=== PATIENT | female | born 1995 | race African-American/Black ===

== ENCOUNTER 2016-09-02 02:26 | Emergency (ER) | payer OTHER ==
[~2016-09-02 02:26] MED LIST: ACET50TA PO; CALC500T49 PO; CENTTAB36 PO; IBUP80TA PO; PRIL20CA9 PO; PROZ40CA PO
[2016-09-02 03:55] LABS: BASO % 0.6 % (0.0-1.0); EOS # 0.2 K/mm3 (0.0-0.50); EOS % 3.2 % (0.0-3.0); LARGE UNSTAINED CELL # 0.2 K/mm3 (0.0-0.4); LARGE UNSTAINED CELL % 3.2 % (0.0-4.0); LYMPH # 2.3 K/mm3 (1.5-6.5); LYMPH % 42.5 % (24.0-44.0); MEAN CORPUSCULAR HEMOGLOBIN 31.3 pg (27.0-33.0); MEAN CORPUSCULAR HGB CONC 33.1 g/dl (32.0-36.5); MEAN CORPUSCULAR VOLUME 94.3 fl (80.0-96.0); MONO # 0.4 K/mm3 (0.0-0.8); MONO % 7.1 % (0.0-5.0); NEUTROPHILS # 2.4 K/mm3 (1.8-7.7); NEUTROPHILS % 43.4 % (36.0-66.0); PLATELET COUNT, AUTOMATED 213 k/mm3 (150-450); RED CELL DISTRIBUTION WIDTH 12.1 % (11.5-14.5); WHITE BLOOD COUNT 5.5 K/mm3 (4.0-10.0)
[2016-09-02 04:05] LABS: CONTROL LINE HCG INT CTR LINE PRESENT
[2016-09-02] MEDS ORDERED: metroNIDAZOLE (FLAGYL) 500 MG TAB As Ordered ONE (05:49)
--- NOTE | 2016-09-02 05:59 | EDDOCDS ---
Nurse's Notes [facility] Name: Dyana León Age: 21 yrs Sex: Female : 1995 Arrival Date: 09/02/2016 Time: 02:26 Bed 10 Private MD: Diagnosis: Other abnormal uterine and vaginal bleeding;Trichomoniasis Presentation: 09/02 02:31 Presenting complaint: Patient states: "My vagina is swollen on the inside. It's ld5 painful. My blood smells funny. It smells like ." Pt reports pain started 3 days ago. Adult Sepsis Screening: The patient does not have new or worsening altered mentation. Patient's respiratory rate is less than 22. Systolic blood pressure is greater than 100. Patient has a qSOFA score of 0- Negative Sepsis Screen. 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 Transition of care: patient was not received from another setting of care. 02:31 Acuity: WONG Level 4 ld5 02:31 Method Of Arrival: Walkin/Carried/Asstd ld5 05:58 Suicide/Homicide risk assessment- the patient denies having any suicidal and/or mlc homicidal ideations and does not present with any other emotional, behavioral or mental health complaints. Triage Assessment: 02:33 General: Appears in no apparent distress. Pain: Location: groin Pain currently is 8 out ld5 of 10 on a pain scale. HIV screening NA for this visit Offered previously. Neurological: Level of Consciousness is awake, alert. Respiratory: Airway is patent Respiratory effort is even, unlabored. : Reports pain with urination yesterday. 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 Trazodone Oral Unknown nightly 2. another unknown sleep med 3. Celebrex Oral Unknown once daily - PMHx: insomnia; - PSHx: none; - Social history: Smoking status: Patient states was never smoker of tobacco. No barriers to communication noted, The patient speaks fluent Moh[place], Speaks appropriately for age. - Family history: Not pertinent. - : The pt / caregiver states he / she is not on anticoagulants. Home medication list is obtained from the patient. - Exposure Risk Screening:: None identified. Screenin:30 Screening information is obtained from the patient. Fall risk: No risks identified. mlc Assistance ADL's: requires no assistance with activities of daily living. Abuse/DV Screen: The patient / caregiver reports he/she is: not in a situation that causes fear, pain or injury. Nutritional screening: No deficits noted. Advance Directives: Currently, there is no health care proxy. home support is adequate. Assessment: 03:24 General: Appears in no apparent distress, comfortable, Behavior is cooperative. Pain: mlc Location: suprapubic area and vaginal opening Pain currently is 7 out of 10 on a pain scale. Neurological: Level of Consciousness is awake, alert, obeys commands, Oriented to person, place, time. Respiratory: Airway is patent Respiratory effort is even, unlabored, Respiratory pattern is regular. GI: Abdomen is non- distended Bowel sounds present X 4 quads. Abd is soft X 4 quads. : Reports vaginal bleeding that is light flow spotty. Derm: Skin is pink, warm & dry. 03:24 Reassessment: pt reports having 2 positive tests at home. mlc 04:20 General: Appears in no apparent distress, pt reports no pain relief and asking to speak mlc with Dr. Jesus again. . 05:20 Reassessment: Patient appears in no apparent distress at this time. Patient states mlc symptoms have not improved. pt's boyfriend told staff that she wiped her vagina with a rag that came in contact with mace. Dr. Jesus made aware. . 05:56 General: Appears in no apparent distress, comfortable, Behavior is cooperative. mlc Neurological: Level of Consciousness is awake, alert, Oriented to person, place, time. Respiratory: Airway is patent Respiratory effort is even, unlabored, Respiratory pattern is regular. Vital Signs: 02:29 BP 137 / 79; Pulse 68; Resp 16; Temp 98.2(O); Pulse Ox 98% on R/A; Weight 77.11 kg (R); ld5 Height 5 ft. 6 in. (167.64 cm) (R); Pain 8/10; 05:56 BP 121 / 83; Pulse 72; Resp 18; Temp 98.7; Pulse Ox 99% ; mlc 02:29 Body Mass Index 27.44 (77.11 kg, 167.64 cm) ld5 Vitals: 02:29 Log In Time: September 02, 2016 at 02:26. ld5 ED Course: 02:27 Patient visited by Trace Braun Reg. pm4 02:27 Patient moved to Waiting pm4 02:32 Triage Initiated ld5 02:34 Patient visited by Alta Donvoan RN. ld5 03:05 Gabi Nuñez RN is Primary Nurse. ko2 03:05 Patient moved to 10 ko2 03:06 Chris Jesus DO is Attending Physician. cs11 03:06 Patient visited by Chris Jesus DO. cs11 03:27 Patient visited by Gabi Nuñez RN. mlc 03:30 Patient visited by Gabi Nuñez RN. mlc 03:44 CBC with Diff Sent. sabino 03:44 HCG,Serum Qualitative Sent. sabino 03:44 Labs drawn. (by ED staff). Sent per order to lab. sabino 03:51 [facility] Agreement was scanned into [employer] and attached to record. [facility] 04:35 Frank Wilks is Referral Physician. cs11 05:17 Assist provider with pelvic exam: Set up pelvic tray. Specimens sent to lab. sabino 05:18 Patient visited by Sanam Ayala PCA. sabino 05:18 Wet Prep Sent. sabino 05:22 Patient visited by Gabi Nuñez RN. mlc 05:25 GC & Chlamydia Amplification Sent. mlc 05:25 Assist provider with pelvic exam: Set up pelvic tray. Specimens sent to lab. Performed mlc by Chris Jesus DO. 05:28 Patient visited by Gabi Nuñez RN. mlc 05:28 The patient / caregiver is instructed regarding the plan of care and ED course. mlc 05:56 No IV's were initiated during this patient's visit. mlc Administered Medications: 05:56 Drug: metroNIDAZOLE 2 grams [metronidazole 500 mg tablet (4 tabs)] Route: PO; mlc 05:56 Follow up: Response: Pt left department before re-evaluation is appropriate mlc Point of Care Testing: Urine : 03:29 hCG Reading: Negative; Control Reading: Positive; mlc Ranges: Order Results: Lab Order: HCG,Serum Qualitative; SPEC'M 09/02/16 03:42 Test: HCG, SERUM QUALITATIVE; Value: NEGATIVE; Range: NEGATIVE; Status: F Lab Order: CBC with Diff; SPEC'M 09/02/16 03:42 Test: WHITE BLOOD COUNT; Value: 5.5; Range: 4.0-10.0; Units: K/mm3; Status: F Test: RED BLOOD COUNT; Value: 4.47; Range: 4.00-5.40; Units: M/mm3; Status: F Test: HEMOGLOBIN; Value: 14.0; Range: 12.0-16.0; Units: g/dl; Status: F Test: HEMATOCRIT; Value: 42.2; Range: 36.0-47.0; Units: %; Status: F Test: MEAN CORPUSCULAR VOLUME; Value: 94.3; Range: 80.0-96.0; Units: fl; Status: F Test: MEAN CORPUSCULAR HEMOGLOBIN; Value: 31.3; Range: 27.0-33.0; Units: pg; Status: F Test: MEAN CORPUSCULAR HGB CONC; Value: 33.1; Range: 32.0-36.5; Units: g/dl; Status: F Test: RED CELL DISTRIBUTION WIDTH; Value: 12.1; Range: 11.5-14.5; Units: %; Status: F Test: PLATELET COUNT, AUTOMATED; Value: 213; Range: 150-450; Units: k/mm3; Status: F Test: NEUTROPHILS %; Value: 43.4; Range: 36.0-66.0; Units: %; Status: F Test: LYMPH %; Value: 42.5; Range: 24.0-44.0; Units: %; Status: F Test: MONO %; Value: 7.1; Range: 0.0-5.0; Abnormal: Above high normal; Units: %; Status: F Test: EOS %; Value: 3.2; Range: 0.0-3.0; Abnormal: Above high normal; Units: %; Status: F Test: BASO %; Value: 0.6; Range: 0.0-1.0; Units: %; Status: F Test: LARGE UNSTAINED CELL %; Value: 3.2; Range: 0.0-4.0; Units: %; Status: F Test: NEUTROPHILS #; Value: 2.4; Range: 1.8-7.7; Units: K/mm3; Status: F Test: LYMPH #; Value: 2.3; Range: 1.5-6.5; Units: K/mm3; Status: F Test: MONO #; Value: 0.4; Range: 0.0-0.8; Units: K/mm3; Status: F Test: EOS #; Value: 0.2; Range: 0.0-0.50; Units: K/mm3; Status: F Test: BASO #; Value: 0.0; Range: 0.0-0.2; Units: K/mm3; Status: F Test: LARGE UNSTAINED CELL #; Value: 0.2; Range: 0.0-0.4; Units: K/mm3; Status: F Lab Order: Wet Prep; SPEC'M 09/02/16 05:20 Test: WET PREP; Value: WET PREP RESULT; Status: F Test: WET PREP; Value: FEW TRICHOMONAS PRESENT; Status: F Test: WET PREP; Value: MODERATE RBC; Status: F Test: WET PREP; Value: MANY WBC; Status: F Test: WET PREP; Value: FEW EPITHELIAL CELLS PRESENT; Status: F Outcome: 04:35 Discharge ordered by Provider. 11 05:56 Discharge Assessment: Patient awake, alert and oriented x 3. No cognitive and/or mlc functional deficits noted. Patient verbalized understanding of disposition instructions. patient administered narcotics - no. The following High Risk Discharge criteria are identified: None. Discharged to home ambulatory. Condition: good Condition: stable. Discharge instructions given to patient, Instructed on discharge instructions, follow up and referral plans. Demonstrated understanding of instructions, Pt was receptive of discharge instructions/ teaching. No special radiology studies were completed. Property sent home with patient. 05:58 [place] [facility] [place] Signatures: Alta Donovan,RN RN ld5 Sanam Ayala, BRAULIO HAND FRETTED INSTRUMENT MAKER Chris Robles, DO DO cs11 Gabi Nuñez RN RN mlc Ogden, Kari, RN RN rob2 Lizette Gudino Trace Olmos, Reg Reg pm4 MTDD
--- NOTE | 2016-09-02 05:59 | EDDOCDS ---
Physician Documentation [facility] Name: Dyana León Age: 21 yrs Sex: Female : 1995 Arrival Date: 09/02/2016 Time: 02:26 Bed 10 Private MD: Disposition: 09/02/16 04:35 Discharged to Home/Self Care. Impression: Other abnormal uterine and vaginal bleeding, Trichomoniasis. - Condition is Stable. - Medication Reconciliation, Local Pharmacy Hours form. - Follow up: Private Physician; When: Call to arrange an appointment; Reason: Recheck today's complaints. Follow up: Frank Wikls; When: Call to arrange an appointment; Reason: Recheck today's complaints. - Problem is new. - Symptoms are unchanged. Historical: - Allergies: no known allergies; - Home Meds: 1. Trazodone Oral Unknown nightly 2. another unknown sleep med 3. Celebrex Oral Unknown once daily - PMHx: insomnia; - PSHx: none; - Social history: Smoking status: Patient states was never smoker of tobacco. No barriers to communication noted, The patient speaks fluent [place], Speaks appropriately for age. - Family history: Not pertinent. - : The pt / caregiver states he / she is not on anticoagulants. Home medication list is obtained from the patient. - Exposure Risk Screening:: None identified. 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 6 in. (167.64 cm) (R); Pain 8/10; 05:56 BP 121 / 83; Pulse 72; Resp 18; Temp 98.7; Pulse Ox 99% ; mlc 02:29 Body Mass Index 27.44 (77.11 kg, 167.64 cm) ld5 MDM: 02:40 UCG by Nursing ordered. mo1 03:37 HCG,Serum Qualitative Ordered. EDMS 03:37 CBC with Diff Ordered. EDMS 03:50 Financial registration complete. [facility] 03:51 [facility] Payment Agreement was scanned into [employer] and attached to record. [facility] 04:32 CBC with Diff Reviewed. cs11 04:32 HCG,Serum Qualitative Reviewed. cs11 05:18 Wet Prep Ordered. EDMS 05:18 GC & Chlamydia Amplification Ordered. EDMS 05:45 Wet Prep Reviewed. cs11 05:47 metroNIDAZOLE 2 grams PO once ordered. cs11 Point of Care Testing: Urine : 03:29 hCG Reading: Negative; Control Reading: Positive; mlc Ranges: Administered Medications: 05:56 Drug: metroNIDAZOLE 2 grams [metronidazole 500 mg tablet (4 tabs)] Route: PO; mlc 05:56 Follow up: Response: Pt left department before re-evaluation is appropriate [facility] [place] Signatures: Dispatcher [employer] Alta Gregory RN RN ld5 Chris Jesus, DO cs11 Efrain Silva PA PA mo1 Gabi Nuñez RN RN Lizette Alvarado [facility] The chart was reviewed and I authenticate all verbal orders and agree with the evaluation and treatment provided.Attachments: 03:51 [facility] [place] Payment Agreement [facility] MTDD
--- NOTE | 2016-09-04 06:59 | EDDOCDS ---
Physician Documentation [facility] Name: Dyana León Age: 21 yrs Sex: Female : 1995 Arrival Date: 09/02/2016 Time: 02:26 Bed 10 Private MD: Disposition: 09/02/16 04:35 Discharged to Home/Self Care. Impression: Other abnormal uterine and vaginal bleeding, Trichomoniasis. - Condition is Stable. - Medication Reconciliation, Local Pharmacy Hours form. - Follow up: Private Physician; When: Call to arrange an appointment; Reason: Recheck today's complaints. Follow up: Frank Wilks; When: Call to arrange an appointment; Reason: Recheck today's complaints. - Problem is new. - Symptoms are unchanged. Historical: - Allergies: no known allergies; - Home Meds: 1. Trazodone Oral Unknown nightly 2. another unknown sleep med 3. Celebrex Oral Unknown once daily - PMHx: insomnia; - PSHx: none; - Social history: Smoking status: Patient states was never smoker of tobacco. No barriers to communication noted, The patient speaks fluent [place]an, Speaks appropriately for age. - Family history: Not pertinent. - : The pt / caregiver states he / she is not on anticoagulants. Home medication list is obtained from the patient. - Exposure Risk Screening:: None identified. 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 6 in. (167.64 cm) (R); Pain 8/10; 05:56 BP 121 / 83; Pulse 72; Resp 18; Temp 98.7; Pulse Ox 99% ; mlc 02:29 Body Mass Index 27.44 (77.11 kg, 167.64 cm) ld5 MDM: 02:40 UCG by Nursing ordered. mo1 03:37 HCG,Serum Qualitative Ordered. EDMS 03:37 CBC with Diff Ordered. EDMS 03:50 Financial registration complete. [facility] 03:51 [facility] Payment Agreement was scanned into [employer] and attached to record. [facility] 04:32 CBC with Diff Reviewed. [facility] 04:32 HCG,Serum Qualitative Reviewed. cs11 05:18 Wet Prep Ordered. EDMS 05:18 GC & Chlamydia Amplification Ordered. EDMS 05:45 Wet Prep Reviewed. cs11 05:47 metroNIDAZOLE 2 grams PO once ordered. [facility] 14:23 T-Sheet-- Draft Copy was scanned into [employer] and attached to record. Point of Care Testing: Urine : 03:29 hCG Reading: Negative; Control Reading: Positive; mlc Ranges: Administered Medications: 05:56 Drug: metroNIDAZOLE 2 grams [metronidazole 500 mg tablet (4 tabs)] Route: PO; mlc 05:56 Follow up: Response: Pt left department before re-evaluation is appropriate mlc Signatures: Dispatcher [employer] EDMS Merle Zhao, Kash Reg gb Alta oDnovan,RN RN ld5 Chris Jesus, DO DO cs11 Efrain Silva PA PA mo1 Gabi Nuñez RN RN Lizette Alvarado [facility] The chart was reviewed and I authenticate all verbal orders and agree with the evaluation and treatment provided.Attachments: 03:51 [facility] Payment Agreement [facility] 14:23 T-Sheet-- Draft Copy Chart Complete [facility]
--- NOTE | 2016-09-04 06:59 | EDDOCDS ---
Nurse's Notes [facility] Name: Dyana León Age: 21 yrs Sex: Female : 1995 Arrival Date: 09/02/2016 Time: 02:26 Bed 10 Private MD: Diagnosis: Other abnormal uterine and vaginal bleeding;Trichomoniasis Presentation: 09/02 02:31 Presenting complaint: Patient states: "My vagina is swollen on the inside. It's ld5 painful. My blood smells funny. It smells like ." Pt reports pain started 3 days ago. Adult Sepsis Screening: The patient does not have new or worsening altered mentation. Patient's respiratory rate is less than 22. Systolic blood pressure is greater than 100. Patient has a qSOFA score of 0- Negative Sepsis Screen. 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 Transition of care: patient was not received from another setting of care. 02:31 Acuity: WONG Level 4 ld5 02:31 Method Of Arrival: Walkin/Carried/Asstd ld5 05:58 Suicide/Homicide risk assessment- the patient denies having any suicidal and/or mlc homicidal ideations and does not present with any other emotional, behavioral or mental health complaints. Triage Assessment: 02:33 General: Appears in no apparent distress. Pain: Location: groin Pain currently is 8 out ld5 of 10 on a pain scale. HIV screening NA for this visit Offered previously. Neurological: Level of Consciousness is awake, alert. Respiratory: Airway is patent Respiratory effort is even, unlabored. : Reports pain with urination yesterday. 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 Trazodone Oral Unknown nightly 2. another unknown sleep med 3. Celebrex Oral Unknown once daily - PMHx: insomnia; - PSHx: none; - Social history: Smoking status: Patient states was never smoker of tobacco. No barriers to communication noted, The patient speaks fluent Slovenian, Speaks appropriately for age. - Family history: Not pertinent. - : The pt / caregiver states he / she is not on anticoagulants. Home medication list is obtained from the patient. - Exposure Risk Screening:: None identified. Screenin:30 Screening information is obtained from the patient. Fall risk: No risks identified. mlc Assistance ADL's: requires no assistance with activities of daily living. Abuse/DV Screen: The patient / caregiver reports he/she is: not in a situation that causes fear, pain or injury. Nutritional screening: No deficits noted. Advance Directives: Currently, there is no health care proxy. home support is adequate. Assessment: 03:24 General: Appears in no apparent distress, comfortable, Behavior is cooperative. Pain: mlc Location: suprapubic area and vaginal opening Pain currently is 7 out of 10 on a pain scale. Neurological: Level of Consciousness is awake, alert, obeys commands, Oriented to person, place, time. Respiratory: Airway is patent Respiratory effort is even, unlabored, Respiratory pattern is regular. GI: Abdomen is non- distended Bowel sounds present X 4 quads. Abd is soft X 4 quads. : Reports vaginal bleeding that is light flow spotty. Derm: Skin is pink, warm & dry. 03:24 Reassessment: pt reports having 2 positive tests at home. mlc 04:20 General: Appears in no apparent distress, pt reports no pain relief and asking to speak mlc with Dr. Jesus again. . 05:20 Reassessment: Patient appears in no apparent distress at this time. Patient states mlc symptoms have not improved. pt's boyfriend told staff that she wiped her vagina with a rag that came in contact with mace. Dr. Jesus made aware. . 05:56 General: Appears in no apparent distress, comfortable, Behavior is cooperative. mlc Neurological: Level of Consciousness is awake, alert, Oriented to person, place, time. Respiratory: Airway is patent Respiratory effort is even, unlabored, Respiratory pattern is regular. Vital Signs: 02:29 BP 137 / 79; Pulse 68; Resp 16; Temp 98.2(O); Pulse Ox 98% on R/A; Weight 77.11 kg (R); ld5 Height 5 ft. 6 in. (167.64 cm) (R); Pain 8/10; 05:56 BP 121 / 83; Pulse 72; Resp 18; Temp 98.7; Pulse Ox 99% ; mlc 02:29 Body Mass Index 27.44 (77.11 kg, 167.64 cm) ld5 Vitals: 02:29 Log In Time: September 02, 2016 at 02:26. ld5 ED Course: 02:27 Patient visited by Trace Braun Reg. pm4 02:27 Patient moved to Waiting pm4 02:32 Triage Initiated ld5 02:34 Patient visited by Alta Donovan RN. ld5 03:05 Gabi Nuñez RN is Primary Nurse. ko2 03:05 Patient moved to 10 ko2 03:06 Chris Jesus DO is Attending Physician. cs11 03:06 Patient visited by Chris Jesus DO. cs11 03:27 Patient visited by Gabi Nuñez RN. mlc 03:30 Patient visited by Gabi Nuñez RN. mlc 03:44 CBC with Diff Sent. sabino 03:44 HCG,Serum Qualitative Sent. sabino 03:44 Labs drawn. (by ED staff). Sent per order to lab. sabino 03:51 [facility] Payment Agreement was scanned into [employer] and attached to record. [facility] 04:35 Frank Wilks is Referral Physician. cs11 05:17 Assist provider with pelvic exam: Set up pelvic tray. Specimens sent to lab. sabino 05:18 Patient visited by Sanam Ayala PCA. sabino 05:18 Wet Prep Sent. sabino 05:22 Patient visited by Gabi Nuñez RN. mlc 05:25 GC & Chlamydia Amplification Sent. mlc 05:25 Assist provider with pelvic exam: Set up pelvic tray. Specimens sent to lab. Performed mlc by Chris Jesus DO. 05:28 Patient visited by Gabi Nuñez RN. mlc 05:28 The patient / caregiver is instructed regarding the plan of care and ED course. mlc 05:56 No IV's were initiated during this patient's visit. mlc 14:23 T-Sheet-- Draft Copy was scanned into [employer] and attached to record. gb Administered Medications: 05:56 Drug: metroNIDAZOLE 2 grams [metronidazole 500 mg tablet (4 tabs)] Route: PO; mlc 05:56 Follow up: Response: Pt left department before re-evaluation is appropriate mlc Point of Care Testing: Urine : 03:29 hCG Reading: Negative; Control Reading: Positive; mlc Ranges: Order Results: Lab Order: HCG,Serum Qualitative; SPEC'M 09/02/16 03:42 Test: HCG, SERUM QUALITATIVE; Value: NEGATIVE; Range: NEGATIVE; Status: F Lab Order: CBC with Diff; SPEC'M 09/02/16 03:42 Test: WHITE BLOOD COUNT; Value: 5.5; Range: 4.0-10.0; Units: K/mm3; Status: F Test: RED BLOOD COUNT; Value: 4.47; Range: 4.00-5.40; Units: M/mm3; Status: F Test: HEMOGLOBIN; Value: 14.0; Range: 12.0-16.0; Units: g/dl; Status: F Test: HEMATOCRIT; Value: 42.2; Range: 36.0-47.0; Units: %; Status: F Test: MEAN CORPUSCULAR VOLUME; Value: 94.3; Range: 80.0-96.0; Units: fl; Status: F Test: MEAN CORPUSCULAR HEMOGLOBIN; Value: 31.3; Range: 27.0-33.0; Units: pg; Status: F Test: MEAN CORPUSCULAR HGB CONC; Value: 33.1; Range: 32.0-36.5; Units: g/dl; Status: F Test: RED CELL DISTRIBUTION WIDTH; Value: 12.1; Range: 11.5-14.5; Units: %; Status: F Test: PLATELET COUNT, AUTOMATED; Value: 213; Range: 150-450; Units: k/mm3; Status: F Test: NEUTROPHILS %; Value: 43.4; Range: 36.0-66.0; Units: %; Status: F Test: LYMPH %; Value: 42.5; Range: 24.0-44.0; Units: %; Status: F Test: MONO %; Value: 7.1; Range: 0.0-5.0; Abnormal: Above high normal; Units: %; Status: F Test: EOS %; Value: 3.2; Range: 0.0-3.0; Abnormal: Above high normal; Units: %; Status: F Test: BASO %; Value: 0.6; Range: 0.0-1.0; Units: %; Status: F Test: LARGE UNSTAINED CELL %; Value: 3.2; Range: 0.0-4.0; Units: %; Status: F Test: NEUTROPHILS #; Value: 2.4; Range: 1.8-7.7; Units: K/mm3; Status: F Test: LYMPH #; Value: 2.3; Range: 1.5-6.5; Units: K/mm3; Status: F Test: MONO #; Value: 0.4; Range: 0.0-0.8; Units: K/mm3; Status: F Test: EOS #; Value: 0.2; Range: 0.0-0.50; Units: K/mm3; Status: F Test: BASO #; Value: 0.0; Range: 0.0-0.2; Units: K/mm3; Status: F Test: LARGE UNSTAINED CELL #; Value: 0.2; Range: 0.0-0.4; Units: K/mm3; Status: F Lab Order: Wet Prep; SPEC'M 09/02/16 05:20 Test: WET PREP; Value: WET PREP RESULT; Status: F Test: WET PREP; Value: FEW TRICHOMONAS PRESENT; Status: F Test: WET PREP; Value: MODERATE RBC; Status: F Test: WET PREP; Value: MANY WBC; Status: F Test: WET PREP; Value: FEW EPITHELIAL CELLS PRESENT; Status: F Lab Order: GC & Chlamydia Amplification; SPEC'M 09/02/16 05:20 Test: CHLAMYDIA DNA AMPLIFICATION; Value: NEGATIVE; Range: NEGATIVE; Status: F Test: GC DNA AMPLIFICATION; Value: NEGATIVE; Range: NEGATIVE; Status: F Outcome: 04:35 Discharge ordered by Provider. cs11 05:56 Discharge Assessment: Patient awake, alert and oriented x 3. No cognitive and/or mlc functional deficits noted. Patient verbalized understanding of disposition instructions. patient administered narcotics - no. The following High Risk Discharge criteria are identified: None. Discharged to home ambulatory. Condition: good Condition: stable. Discharge instructions given to patient, Instructed on discharge instructions, follow up and referral plans. Demonstrated understanding of instructions, Pt was receptive of discharge instructions/ teaching. No special radiology studies were completed. Property sent home with patient. 05:58 Patient left the ED. mlc Signatures: Merle Zhao, Reg Reg gb Alta Donovan,RN RN ld5 Sanam Ayala, BRAULIO BALL WORKER Chris Robles, DO DO cs11 Gabi Nuñez RN RN mlc Ogden, Kari, RN RN ko2 Lizette Gudino [facility] Trace Braun, Reg Reg pm4 Chart Complete MTDD
--- NOTE | 2016-09-04 06:59 | EDDOCDS ---
Physician Documentation [facility] Name: Dyana León Age: 21 yrs Sex: Female : 1995 Arrival Date: 09/02/2016 Time: 02:26 Bed 10 Private MD: Disposition: 09/02/16 04:35 Discharged to Home/Self Care. Impression: Other abnormal uterine and vaginal bleeding, Trichomoniasis. - Condition is Stable. - Medication Reconciliation, Local Pharmacy Hours form. - Follow up: Private Physician; When: Call to arrange an appointment; Reason: Recheck today's complaints. Follow up: Frank Wilks; When: Call to arrange an appointment; Reason: Recheck today's complaints. - Problem is new. - Symptoms are unchanged. Historical: - Allergies: no known allergies; - Home Meds: 1. Trazodone Oral Unknown nightly 2. another unknown sleep med 3. Celebrex Oral Unknown once daily - PMHx: insomnia; - PSHx: none; - Social history: Smoking status: Patient states was never smoker of tobacco. No barriers to communication noted, The patient speaks fluent German, Speaks appropriately for age. - Family history: Not pertinent. - : The pt / caregiver states he / she is not on anticoagulants. Home medication list is obtained from the patient. - Exposure Risk Screening:: None identified. 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 6 in. (167.64 cm) (R); Pain 8/10; 05:56 BP 121 / 83; Pulse 72; Resp 18; Temp 98.7; Pulse Ox 99% ; mlc 02:29 Body Mass Index 27.44 (77.11 kg, 167.64 cm) ld5 MDM: 02:40 UCG by Nursing ordered. mo1 03:37 HCG,Serum Qualitative Ordered. EDMS 03:37 CBC with Diff Ordered. EDMS 03:50 Financial registration complete. [facility] 03:51 [facility] Payment Agreement was scanned into [employer] and attached to record. [facility] 04:32 CBC with Diff Reviewed. [facility] 04:32 HCG,Serum Qualitative Reviewed. cs11 05:18 Wet Prep Ordered. EDMS 05:18 GC & Chlamydia Amplification Ordered. EDMS 05:45 Wet Prep Reviewed. cs11 05:47 metroNIDAZOLE 2 grams PO once ordered. [facility] 14:23 T-Sheet-- Draft Copy was scanned into [employer] and attached to record. Point of Care Testing: Urine : 03:29 hCG Reading: Negative; Control Reading: Positive; mlc Ranges: Administered Medications: 05:56 Drug: metroNIDAZOLE 2 grams [metronidazole 500 mg tablet (4 tabs)] Route: PO; mlc 05:56 Follow up: Response: Pt left department before re-evaluation is appropriate mlc Signatures: Dispatcher MedHost EDMS Merle Zhao, Kash Reg gb Alta Donovan,RN RN ld5 Chris Jesus, DO DO cs11 Efrain Silva PA PA mo1 Gabi Nuñez RN RN Lizette Alvarado [facility] The chart was reviewed and I authenticate all verbal orders and agree with the evaluation and treatment provided.Attachments: 03:51 [facility] Payment Agreement [facility] 14:23 T-Sheet-- Draft Copy Chart Complete [facility]
== END 2016-09-02 05:58 | disposition home or self-care (01) ==
LOC: M ED 02:26
DX: N92.4 Excessive bleeding in the premenopausal period (principal); A59.9 Trichomoniasis, unspecified; G47.00 Insomnia, unspecified; Z79.01 Long term (current) use of anticoagulants; Z79.899 Other long term (current) drug therapy

== ENCOUNTER 2016-09-12 18:42 | Emergency (ER) | payer OTHER ==
[2016-09-12] MEDS ORDERED: METHOCARBAMOL 500 MG TAB As Ordered ONE (19:44)
[2016-09-12] MEDS ORDERED: IBUPROFEN 800 MG TAB As Ordered ONE (19:45)
--- NOTE | 2016-09-12 21:16 | EDDOCDS ---
Physician Documentation [facility] Name: Dyana León Age: 21 yrs Sex: Female : 1995 Arrival Date: 09/12/2016 Time: 18:42 Bed TR1 Private MD: NYDIA Lopez Disposition: 09/12/16 20:57 Patient has left against medical advice. Impression: Contusion of lower back and pelvis, Contusion of left knee. - Patients states they are going to Home/Self Care. - Condition is Unchanged. Medication Reconciliation, Local Pharmacy Hours form. Follow up: NYDIA Lopez; When: Today; Reason: Recheck today's complaints, Continuance of care. - Problem is new. - Symptoms are unchanged. Historical: - Allergies: No known drug Allergies; - Home Meds: 1. none - PMHx: insomnia; - PSHx: none; - Social history: Smoking status: Patient states was never smoker of tobacco. No barriers to communication noted, The patient speaks fluent Lao, Speaks appropriately for age. - : The pt / caregiver states he / she is not on anticoagulants. Home medication list is obtained from the patient. - Exposure Risk Screening:: None identified. 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 6 in. (167.64 cm); 19:18 Body Mass Index 25.50 (71.67 kg, 167.64 cm) jo3 MDM: 19:41 Methocarbamol 1 grams PO once ordered. mo1 19:41 Ibuprofen 800 mg PO once ordered. mo1 19:43 Hip,AP,LAT to include Pelvis Ordered. EDMS 19:56 Financial registration complete. gjb 20:26 [facility] [place] Agreement was scanned into [employer] and attached to record. gjb 21:15 [facility] was scanned into [employer] and attached to record. gjb Administered Medications: 19:50 Drug: Methocarbamol 1 grams [methocarbamol 500 mg tablet (2 tabs)] Route: PO; ms2 19:50 Drug: Ibuprofen 800 mg Route: PO; ms2 Signatures: Dispatcher MedHost Lynsey AuRN RN jo3 Efrain Silva PA PA mo1 Ame Phelan Michele RN ms2 The chart was reviewed and I authenticate all verbal orders and agree with the evaluation and treatment provided.Attachments: 20:26 [facility] Payment Agreement fabián MTDD
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
--- NOTE | 2016-09-13 01:22 | REP ---
Clinical: Trauma. Technique: AP view of the pelvis with neutral and frog lateral views of the left hip. Findings: Pelvis and left hip are intact. There is no evidence for acute fracture or dislocation. Surrounding soft tissues are unremarkable. Impression: Normal pelvis and left hip radiographs. Signed by Matthieu Heredia MD 09/13/2016 01:14 A
--- NOTE | 2016-09-14 22:16 | EDDOCDS ---
Physician Documentation [facility] Name: Dyana León Age: 21 yrs Sex: Female : 1995 Arrival Date: 09/12/2016 Time: 18:42 Bed TR1 Private MD: NYDIA Lopez Disposition: 09/12/16 20:57 Patient has left against medical advice. Impression: Contusion of lower back and pelvis, Contusion of left knee. - Patients states they are going to Home/Self Care. - Condition is Unchanged. Medication Reconciliation, Local Pharmacy Hours form. Follow up: NYDIA Lopez; When: Today; Reason: Recheck today's complaints, Continuance of care. - Problem is new. - Symptoms are unchanged. Historical: - Allergies: No known drug Allergies; - Home Meds: 1. none - PMHx: insomnia; - PSHx: none; - Social history: Smoking status: Patient states was never smoker of tobacco. No barriers to communication noted, The patient speaks fluent Faroese, Speaks appropriately for age. - : The pt / caregiver states he / she is not on anticoagulants. Home medication list is obtained from the patient. - Exposure Risk Screening:: None identified. 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 6 in. (167.64 cm); 19:18 Body Mass Index 25.50 (71.67 kg, 167.64 cm) jo3 MDM: 19:41 Methocarbamol 1 grams PO once ordered. mo1 19:41 Ibuprofen 800 mg PO once ordered. mo1 19:43 Hip,AP,LAT to include Pelvis Ordered. EDMS 19:56 Financial registration complete. gjb 20:26 [facility] Payment Agreement was scanned into [employer] and attached to record. gjb 21:15 [facility] was scanned into [employer] and attached to record. gjb 09/13 12:28 Refusal of Services was scanned into [employer] and attached to record. gb 12:28 T-Sheet-- Draft Copy was scanned into [employer] and attached to record. gb Administered Medications: 09/12 19:50 Drug: Methocarbamol 1 grams [methocarbamol 500 mg tablet (2 tabs)] Route: PO; ms2 19:50 Drug: Ibuprofen 800 mg Route: PO; ms2 Signatures: Dispatcher MedHost EDMerle Dukes, Reg Reg gb Lynsey Ruggiero RN RN jo3 Efrain Silva PA PA mo1 Beck, Gabriela gjb Sobkiewicz, Michele RN ms2 The chart was reviewed and I authenticate all verbal orders and agree with the evaluation and treatment provided.Attachments: 20:26 [facility] Payment Agreement fabián 12:28 T-Sheet-- Draft Copy Chart Complete MTDD
--- NOTE | 2016-09-14 22:16 | EDDOCDS ---
Physician Documentation [facility] Name: Dyana León Age: 21 yrs Sex: Female : 1995 Arrival Date: 09/12/2016 Time: 18:42 Bed TR1 Private MD: NYDIA Lopez Disposition: 09/12/16 20:57 Patient has left against medical advice. Impression: Contusion of lower back and pelvis, Contusion of left knee. - Patients states they are going to Home/Self Care. - Condition is Unchanged. Medication Reconciliation, Local Pharmacy Hours form. Follow up: NYDIA Lopez; When: Today; Reason: Recheck today's complaints, Continuance of care. - Problem is new. - Symptoms are unchanged. Historical: - Allergies: No known drug Allergies; - Home Meds: 1. none - PMHx: insomnia; - PSHx: none; - Social history: Smoking status: Patient states was never smoker of tobacco. No barriers to communication noted, The patient speaks fluent Turkish, Speaks appropriately for age. - : The pt / caregiver states he / she is not on anticoagulants. Home medication list is obtained from the patient. - Exposure Risk Screening:: None identified. 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 6 in. (167.64 cm); 19:18 Body Mass Index 25.50 (71.67 kg, 167.64 cm) jo3 MDM: 19:41 Methocarbamol 1 grams PO once ordered. mo1 19:41 Ibuprofen 800 mg PO once ordered. mo1 19:43 Hip,AP,LAT to include Pelvis Ordered. EDMS 19:56 Financial registration complete. gjb 20:26 [facility] Payment Agreement was scanned into [employer] and attached to record. gjb 21:15 [facility] was scanned into [employer] and attached to record. gjb 09/13 12:28 Refusal of Services was scanned into [employer] and attached to record. gb 12:28 T-Sheet-- Draft Copy was scanned into MEDHOST and attached to record. gb Administered Medications: 09/12 19:50 Drug: Methocarbamol 1 grams [methocarbamol 500 mg tablet (2 tabs)] Route: PO; ms2 19:50 Drug: Ibuprofen 800 mg Route: PO; ms2 Signatures: Dispatcher MedHost EDMerle Dukes, Reg Reg gb Lynsey Ruggiero RN RN jo3 Efrain Silva PA PA mo1 Beck, Gabriela gjb Sobkiewicz, Michele RN ms2 The chart was reviewed and I authenticate all verbal orders and agree with the evaluation and treatment provided.Attachments: 20:26 [facility] Payment Agreement fabián 12:28 T-Sheet-- Draft Copy Chart Complete MTDD
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
== END 2016-09-12 20:50 | disposition left against medical advice (07) ==
LOC: M ED 18:42
DX: S20.229A Contusion of unspecified back wall of thorax, initial encounter (principal); S70.02XA Contusion of left hip, initial encounter; V44.6XXA Car passenger injured in collision with heavy transport vehicle or bus in traffic accident, initial encounter; Y92.410 Unspecified street and highway as the place of occurrence of the external cause

== ENCOUNTER 2016-12-03 01:47 | Emergency (ER) | payer OTHER ==
[~2016-12-03] VITALS: Ht 167.6 cm; Wt 80.7 kg
[2016-12-03] MEDS ORDERED: ACET-654 PO (01:55)
[2016-12-03] MEDS ORDERED: CIPR500T89 PO (04:51)
[2016-12-03] MEDS ORDERED: PYRI200T5 PO (04:51)
[2016-12-03 04:54] VITALS: BP 129/83
[2016-12-03] MEDS ORDERED: PHENAZOPYRIDINE 100 MG TAB PO ONE (05:00)
[2016-12-03] MEDS ORDERED: CIPROFLOXACIN 500 MG TAB PO ONE (05:00)
== END 2016-12-03 05:03 | disposition home or self-care (01) ==
LOC: M ED 02:50
DX: N30.01 Acute cystitis with hematuria (principal)